=== PATIENT | female | born 1975 | race American Indian/Alaskan Native ===

== ENCOUNTER 2017-06-19 19:40 | Emergency (ER) | payer OTHER ==
--- NOTE | ~2017-06-19 | ER ---
PATIENT'S NAME: SHANTI RIGGINS [facility] AGE: 41 Y [address] ROOM: [place] [id number] LOCATION: ED ADMIT DATE: 06/19/2017 ER/Outpatient Report DISCHARGE DATE: 06/19/2017 FAMILY PHYSICIAN: PHYSICIAN, NO ATTENDING PHYSICIAN: Taylor Sams Time of Arrival: 1940 hours. Time of Evaluation: 1943 hours. CHIEF COMPLAINT: Dental pain. HISTORY OF PRESENT ILLNESS: This is a 41-year-old female, who presents to the ER with dental pain. It has been going on acutely for 2 days. She states she lost her filling out of her tooth over a week ago, and then in the last couple of days, her pain is increased. She states she has multiple dental caries. She states she is having some pain in her left lower molar and right upper molar. She has not been running any fevers at home. She states she has not noticed any facial swelling. Denies any other problems at this time. ALLERGIES: NO KNOWN ALLERGIES. MEDICATIONS: Please see medication list in nurse's notes. PAST MEDICAL HISTORY: 1. Insulin-dependent diabetes. 2. Hypertension. 3. Hypercholesterolemia. SOCIAL HISTORY: Smokes half pack a day. Drinks alcohol occasionally. REVIEW OF SYSTEMS: CONSTITUTIONAL: Denies any change in weight or fatigue. HEENT: She is complaining of dental pain. HEME: No easy bruising or bleeding. SKIN: No lesions or rashes. PHYSICAL EXAMINATION: VITAL SIGNS: Height 5 feet 10 inches stated, weight 99.5 kg taken, blood pressure is 155/113, pulse 86, respirations 18, temperature 97.9 degrees orally, saturations 97% on room air. [place] Coma score is 15. GENERAL: An [facility] 41 Y [address] ROOM: [place] [id number] LOCATION: ED ADMIT DATE: 06/19/2017 ER/Outpatient Report DISCHARGE DATE: 06/19/2017 FAMILY PHYSICIAN: PHYSICIAN, NO ATTENDING PHYSICIAN: Taylor Sams alert, calm, 41-year-old female, in mild distress. HEENT: Head: Normocephalic. Eyes: Pupils are equal and reactive to light. Ears: TMs display good light reflexes bilaterally. Nose: Turbinates pink with no drainage. Throat: No exudates or erythema. Does display moist mucous membranes. She does have widespread dental decay noted. Her gums are non-erythematic. There is no fluctuance to the skin. She has no facial swelling. LUNGS: Clear to auscultation bilaterally. HEART: Regular rate and rhythm. EXTREMITIES: No clubbing, cyanosis, or edema. She has full range of motion of all limbs. LABORATORY DATA AND X-RAYS: None were done. IMPRESSION: Dental pain. ASSESSMENT AND PLAN: We will place the patient on amoxicillin and Percocet to use as directed. We did give her 2 Percocet here in the emergency room for her pain. The patient needs to follow up with her dentist as soon as possible, and she needs to eat soft foods, and she may alternate her pain medication as needed with the ibuprofen. The patient understands and agrees with care. REYES LEE PA-C FOR MD JON ZIMMER/[email or web address] /[id number] d: t: 06/20/17 1257, OUTPATIENT REPORT
== END 2017-06-19 19:58 | disposition disaster alternative care site (69) ==
LOC: GMED 19:40
DX: K08.89 Other specified disorders of teeth and supporting structures (principal); F17.210 Nicotine dependence, cigarettes, uncomplicated; E11.9 Type 2 diabetes mellitus without complications; I10 Essential (primary) hypertension; E78.00 Pure hypercholesterolemia, unspecified